=== PATIENT | male | born 1945 | race Caucasian/White ===

== ENCOUNTER → 2016-10-02 | Outpatient (CLI) | payer MEDICARE, OTHER ==
[2016-10-02 14:43] LABS: HEMATOCRIT 38.9 % (37.0-53.0); HEMOGLOBIN 13.7 g/dL (11.0-16.0); MCH 33.5 pg (27.0-34.0); MCHC 35.2 gm/dL (32.0-36.5); MCV 95.1 fl (83.0-98.0); MPV 8.9 fl (9.4-12.4); PLATELET COUNT 228 K/uL (150-450); RBC 4.09 M/uL (3.50-5.50); RDW-CV 12.5 % (11.9-14.6); WBC 6.2 K/uL (4.0-11.0)
[2016-10-02 15:17] LABS: ALK PHOS 60 IU/L (33-138); ALT 36 IU/L (12-78); ANION GAP 12.8 (10.0-19.0); AST 25 IU/L (10-40); BLOOD UREA NITROGEN 23 mg/dL (6-24); CALCIUM 9.1 mg/dL (8.5-10.5); CHLORIDE 106 mMol/L (96-110); CO2 25 mMol/L (22-32); ESTIMATED GFR (MDRD EQUATION) > 60; POTASSIUM 3.8 mMol/L (3.7-5.1); SODIUM 140 mMol/L (135-145); TOTAL BILIRUBIN 0.9 mg/dL (0.0-1.5); TOTAL PROTEIN 7.3 g/dL (6.0-8.4)
[2016-10-02 15:32] LABS: ABSOLUTE NEUTROPHIL CT (ANC) 3.3 K/uL (1.4-9.0); LYMPHOCYTE % 33 %; MONOCYTE # 0.7 K/uL (0.0-1.0); SEGMENTED NEUTROPHIL # 3.3 K/uL (1.4-9.0); SEGMENTED NEUTROPHIL % 53 %
== END ==
LOC: LELM 13:35
PROVIDERS: Family Medicine
DX: I10 Essential (primary) hypertension (principal); E78.5 Hyperlipidemia, unspecified; E03.9 Hypothyroidism, unspecified; N52.9 Male erectile dysfunction, unspecified; R39.15 Urgency of urination; Z79.899 Other long term (current) drug therapy